=== PATIENT | male | born 1985 | race American Indian/Alaskan Native ===

== ENCOUNTER 2016-04-08 13:02 | Emergency (ER) | payer MEDICAID ==
[2016-04-08 13:26] VITALS: BP 115/71
--- NOTE | 2016-04-08 14:28 | Emergency Department Report ---
- General Chief Complaint: Earache Stated Complaint: SINUS/EAR INFECTION Time Seen by Provider: 04/08/16 14:19 Source: patient Mode of arrival: Ambulatory Limitations: No Limitations - History of Present Illness Initial Comments: Pt reports cough/congestion, sinus pain, low grade fever x 4 days. Hx of HIV, compliant with meds. Denies IVDU but reports he snorted cocaine yesterday. MD Complaint: fever, cough, nasal congestion, sinus pain -: Gradual, days(s) (4) Severity: moderate Consistency: constant Improves With: nothing Worsens With: nothing Associated Symptoms: fever, chills, nasal congestion, cough. denies: stiff neck , chest pain, shortness of breath, abdominal pain, nausea, vomiting, diarrhea, dysuria - Related Data Previous Rx's Medication Instructions Recorded Last Taken Type Amoxicillin/K Clav Tab [Augmentin 1 tab PO Q12HR #20 tab 04/08/16 Unknown Rx 875 mg] Allergies Allergy/AdvReac Type Severity Reaction Status Date / Time No Known Allergies Allergy Verified 04/08/16 13:21 ED Review of Systems ROS: Stated complaint: SINUS/EAR INFECTION Other details as noted in HPI Comment: All other systems reviewed and negative Constitutional: chills, fever Eyes: denies: eye pain, eye discharge, vision change ENT: congestion. denies: ear pain, throat pain Respiratory: cough. denies: shortness of breath, wheezing Cardiovascular: denies: chest pain, palpitations Endocrine: no symptoms reported Gastrointestinal: denies: abdominal pain, nausea, diarrhea Genitourinary: denies: urgency, dysuria Musculoskeletal: denies: back pain, joint swelling, arthralgia Skin: denies: rash, lesions Neurological: denies: headache, weakness, paresthesias Psychiatric: denies: anxiety, depression Hematological/Lymphatic: denies: easy bleeding, easy bruising ED Past Medical Hx - Past Medical History Hx HIV: Yes - Surgical History Past Surgical History?: No - Social History Smoking Status: Never Smoker Substance Use Type: Alcohol, Cocaine - Medications Home Medications: Home Medications Medication Instructions Recorded Confirmed Last Taken Type Amoxicillin/K Clav Tab [Augmentin 1 tab PO Q12HR #20 tab 04/08/16 Unknown Rx 875 mg] ED Physical Exam - General Limitations: No Limitations General appearance: alert (drowsy), in no apparent distress - Head Head exam: Present: atraumatic, normocephalic - Eye Eye exam: Present: normal appearance, PERRL, EOMI - ENT ENT exam: Present: normal orophraynx, mucous membranes moist, TM's normal bilaterally - Neck Neck exam: Present: normal inspection. Absent: meningismus - Respiratory Respiratory exam: Present: normal lung sounds bilaterally. Absent: respiratory distress, wheezes, rales, rhonchi - Cardiovascular Cardiovascular Exam: Present: regular rate, normal rhythm. Absent: systolic murmur, diastolic murmur, rubs, gallop - GI/Abdominal GI/Abdominal exam: Present: soft, normal bowel sounds. Absent: tenderness, guarding - Rectal Rectal exam: Present: deferred - Extremities Exam Extremities exam: Present: normal inspection - Back Exam Back exam: Present: normal inspection - Neurological Exam Neurological exam: Present: alert, oriented X3 - Psychiatric Psychiatric exam: Present: normal affect, normal mood - Skin Skin exam: Present: warm, dry, intact, normal color. Absent: rash ED Course Vital Signs 04/08/16 13:15 Temperature 99.7 F H Pulse Rate 100 H Respiratory 19 Rate Blood Pressure 115/71 O2 Sat by Pulse 95 Oximetry - Reevaluation(s) Reevaluation #1: 04/08/16 14:58 NAD, stable for d/c. ED Medical Decision Making - Radiology Data Radiology results: report reviewed naf - Medical Decision Making Pt with acute sinusitis. Will cover with abx. Have advised on return precautions and close follow up with PCP/ID provider. VSS. - Differential Diagnosis pna, sinusitis Critical care attestation.: If time is entered above; I have spent that time in minutes in the direct care of this critically ill patient, excluding procedure time. ED Disposition Clinical Impression: Acute bacterial rhinosinusitis Disposition: DISCHARGED TO HOME OR SELFCARE Is pt being admited?: No Condition: Good Instructions: Acute Bacterial Rhinosinusitis (ED) Prescriptions: Amoxicillin/K Clav Tab [Augmentin 875 mg] 1 tab PO Q12HR #20 tab Referrals: PRIMARY CARE, [Primary Care Provider] - 3-5 Days Time of Disposition: 15:02
--- NOTE | 2016-04-08 14:52 | XRay Report ---
ROUTINE CHEST, TWO VIEWS: HISTORY: Cough, fever. The trachea, heart, mediastinal contour, lung boyer and bony thorax are unremarkable. IMPRESSION: Unremarkable chest x-ray.
== END 2016-04-08 15:08 | disposition home or self-care (01) ==
LOC: ED 13:02
DX: J01.90 Acute sinusitis, unspecified (principal); Z21 Asymptomatic human immunodeficiency virus [HIV] infection status
CPT/HCPCS: 71020; 99283

== ENCOUNTER 2016-09-14 21:12 | Inpatient (IN) | payer MEDICAID ==
[2016-09-14] MEDS ORDERED: DILAUDID IV ONE (23:11)
[2016-09-14] MEDS ORDERED: ZOFRAN IV ONE (23:11)
[2016-09-14] MEDS ORDERED: NACL 0.9% 1000 ML 1,000 ML IV ONE (23:11)
--- NOTE | 2016-09-14 23:16 | Emergency Department Report ---
- General Chief complaint: Weakness Stated complaint: DEHYDRATION/BODY CRAMPS Time Seen by Provider: 09/14/16 23:07 Source: patient, EMS Mode of arrival: Stretcher Limitations: No Limitations - History of Present Illness MD Complaint: generalized weakness -: Gradual Location: generalized Severity: moderate Severity scale (0 -10): 2 Consistency: constant Improves with: none Worsens with: none Associated Symptoms: myalgias. denies: chest pain, confusion, dark stools, diaphoresis, dysuria, easy bruising, fever/chills, headaches, loss of appetite, nausea/vomiting, rash, shortness of breath - Related Data Previous Rx's Medication Instructions Recorded Last Taken Type Amoxicillin/K Clav Tab [Augmentin 1 tab PO Q12HR #20 tab 04/08/16 Unknown Rx 875 mg] Allergies Allergy/AdvReac Type Severity Reaction Status Date / Time No Known Allergies Allergy Verified 04/08/16 13:21 ED Review of Systems ROS: Stated complaint: DEHYDRATION/BODY CRAMPS Other details as noted in HPI Comment: All other systems reviewed and negative ED Past Medical Hx - Past Medical History Previous Medical History?: Yes Hx HIV: Yes - Surgical History Past Surgical History?: No - Social History Smoking Status: Never Smoker Substance Use Type: None - Medications Home Medications: Home Medications Medication Instructions Recorded Confirmed Last Taken Type Amoxicillin/K Clav Tab [Augmentin 1 tab PO Q12HR #20 tab 04/08/16 Unknown Rx 875 mg] ED Physical Exam - General Limitations: No Limitations General appearance: alert, in no apparent distress - Head Head exam: Present: atraumatic, normocephalic - Eye Eye exam: Present: normal appearance, PERRL, EOMI - ENT ENT exam: Present: mucous membranes dry - Neck Neck exam: Present: normal inspection - Respiratory Respiratory exam: Present: normal lung sounds bilaterally. Absent: respiratory distress - Cardiovascular Cardiovascular Exam: Present: regular rate, normal rhythm. Absent: systolic murmur, diastolic murmur, rubs, gallop - GI/Abdominal GI/Abdominal exam: Present: soft, normal bowel sounds - Rectal Rectal exam: Present: deferred - Extremities Exam Extremities exam: Present: normal inspection - Back Exam Back exam: Present: normal inspection - Neurological Exam Neurological exam: Present: alert, oriented X3 - Psychiatric Psychiatric exam: Present: normal affect, normal mood - Skin Skin exam: Present: warm, dry, intact, normal color. Absent: rash ED Course Vital Signs 09/14/16 22:31 Temperature 99.7 F H Pulse Rate 88 Respiratory 16 Rate Blood Pressure 92/52 O2 Sat by Pulse 99 Oximetry ED Medical Decision Making - Lab Data Result diagrams: 09/14/16 23:33 09/14/16 23:38 - Radiology Data Radiology results: report reviewed, image reviewed - Medical Decision Making will admit for intractable vomiting / dehydration , still just minimal improvement after fluids , he was recently seen and dc from another hospital. i think he deserves a work up for his symptoms, specially his elevated alk phospate Critical care attestation.: If time is entered above; I have spent that time in minutes in the direct care of this critically ill patient, excluding procedure time. ED Disposition Clinical Impression: Dehydration, Vomiting Disposition: DC-09 OP ADMIT IP TO THIS HOSP Is pt being admited?: No Does the pt Need Aspirin: No Condition: Fair Referrals: PRIMARY CARE, [Primary Care Provider] - 3-5 Days Time of Disposition: 01:52
--- NOTE | 2016-09-14 23:58 | XRay Report ---
FINAL REPORT PROCEDURE: AP and lateral chest x-ray TECHNIQUE: AP and lateral chest radiographs were obtained. CPT 99976 HISTORY: Weakness COMPARISON: No prior studies are available for comparison. FINDINGS: The patient is in a mild reverse apical lordotic position and rotated to the right. Heart: Normal. Mediastinum/Vessels: Normal. Lungs/Pleural space: Mildly hypoventilated. There is some crowding of the bronchovascular markings in the bases likely due to poor inspiration. No dense consolidations are seen.. Bony thorax: No acute osseous abnormality. Other: IMPRESSION: Lungs are hypoventilated. No acute abnormality is visualized..
[2016-09-15 00:02] LABS: Hemoglobin 8.9 gm/dl (11.8-15.2); Mean Corpuscular HGB Conc 33 % (32-34); Mean Corpuscular Hemoglobin 28 pg (28-32); Mean Corpuscular Volume 85 fl (84-94); Platelet Count 264 K/mm3 (140-440); Red Blood Count 3.18 M/mm3 (3.65-5.03)
[2016-09-15 00:07] LABS: INR 0.97 (0.87-1.13)
[2016-09-15 00:11] LABS: Magnesium 1.6 mg/dL (1.7-2.3)
[2016-09-15 00:24] LABS: Alanine Aminotransferase 52 units/L (7-56); Albumin/Globulin Ratio 0.8 %; Anion Gap 16 mmol/L; BUN/Creatinine Ratio 8.88; Blood Urea Nitrogen 8 mg/dL (9-20); Calcium 7.6 mg/dL (8.4-10.2); Carbon Dioxide 19 mmol/L (22-30); Chloride 103.3 mmol/L (98-107); Glucose 83 mg/dL (75-100); Potassium 3.1 mmol/L (3.6-5.0); Sodium 135 mmol/L (137-145); Total Protein 6.6 g/dL (6.3-8.2)
[2016-09-15 00:49] LABS: Alkaline Phosphatase 1393 units/L (35-129)
[2016-09-15] MEDS ORDERED: KCL 10MEQ/100ML 10 MEQ/100 ML BAG IV ONE ×2 (01:20→01:38)
[2016-09-15] MEDS ORDERED: NACL 0.9% 1000 ML 1,000 ML IV ONE (01:39)
[2016-09-15 02:53] LABS: Blastocytes % (Manual) 0 %; Eosinophils % (Manual) 0 % (0.0-4.3)
[2016-09-15 02:54] LABS: Anisocytosis 1+; Platelet Estimate Consistent w Auto
[2016-09-15 02:55] LABS: Diff Status Complete
[2016-09-15] MEDS ORDERED: MORPHINE IV PRN (08:42)
[2016-09-15] MEDS ORDERED: ZOFRAN IV PRN (08:42)
[2016-09-15] MEDS ORDERED: DULCOLAX PR PRN (08:42)
[2016-09-15] MEDS ORDERED: MILK OF MAGNESIA PO PRN (08:42)
[2016-09-15] MEDS ORDERED: D5W/0.45% NACL/KCL 20 MEQ 20 MEQ/1,000 ML BAG IV SCH (09:00)
--- NOTE | 2016-09-15 09:01 | Admit Criteria Form ---
Admission Criteria Documentation: GASTROENTEROLOGY GRG Clinical Indications for Admission to Inpatient Care (Place 'X' for any and all applicable criteria): Hospital admission is needed for appropriate care of the patient because of ANY ONE of the following: [ ]I. Hemoperitoneum(7) [ ]II. Ascites requiring acute treatment indicated by ANY ONE of the following( 8)(9): [ ]a) Hemodynamic instability remaining after emergency or observation level care (as appropriate) [ ]b) Peritoneal signs present (eg, abdominal rigidity, rebound tenderness, absent bowel sounds) [ ]c) Tachypnea, Hypoxemia, or other respiratory symptoms remain after emergency or observation level care (as appropriate) [ ]d) Suspected infected ascites as indicated by ANY ONE of the following: [ ]i) Temperature greater than 100 degrees F (37.8 degrees C) [ ]ii) Abdominal pain or tenderness not relieved by paracentesis [ ]iii) Systemic signs of infection (eg, elevated WBC count, fever) [ ]iv) Ascitic fluid analysis consistent with infection ( eg, elevated WBC count): [ ]v) Vital sign abnormality [ ]III. Suspected acute intra-abdominal process indicated by ANY ONE of the following(1)(2)(3)(4)(5): [ ]a) Hemodynamic instability [ ]b) Peritoneal signs present (eg, abdominal rigidity, rebound tenderness, absent bowel sounds) [ ]c) Bowel obstruction suspected (eg, severe vomiting, abdominal distension) [ ]d) Suspected mesenteric ischemia or ischemic colitis(6) [ ]e) Other signs or symptoms of acute abdominal disease (eg, severe pain, free air): [ ]IV. Severe liver disease indicated by ANY ONE of the following(8)(9)(10)(11)( 12)(13)(14): [ ]a) Acute hepatitis (eg, transaminase level greater than 1000 IU/L) [ ]b) Acute elevation of prothrombin time to more than 50% above normal or INR greater than 1.5 [ ]c) Bilirubin greater than 20 mg/dL (342 micromoles/L) (15) [ ]d) New-onset or worsening hepatic encephalopathy [ ]e) Acute liver necrosis [ ]f) Vomiting or dehydration that is severe of persistent [ ]g) Hemodynamic instability due to liver disease [ ]h) Acute renal failure [ ]i) Hepatic abscess [ ]j) Dehydration that is severe or persistent [ ]k) Hepatic hydrothorax(21) [ ]l) Other indications of severe liver disease (eg, persistent fever , ingestion of hepatotoxin) [ ]V. Severe diarrhea indicated by ANY ONE of the following(17)(18)(19)(20)(21)( 22)(23): [ ]a) High fever or other high-risk infection situation [ ]b) Intractable bloody diarrhea (eg, more than 6 bloody stools per day) [ ]c) Suspected Clostridium difficile-associated diarrhea(24) [ ]d) Change in mental status that persists after emergency or observation level care (as appropriate) [ ]e) Severe dehydration (eg, greater than 9% loss of body weight in children) [ ]f) Inability to maintain hydration [ ]g) Peritoneal signs present (eg, abdominal rigidity, rebound tenderness, absent bowel sounds) [ ]h) Abdominal ischemia suspected(6) [ ]i) Hemodynamic instability that persists after emergency or observation level care (as appropriate) [ ]j) Severe electrolyte abnormalities requiring inpatient care [ ]k) Acute renal failure [ ]. Suspected toxic megacolon(5)(6) [ ]VII.Severe dysphagia indicated by ANY ONE of the following(25)(26): [ ]a) Suspected esophageal perforation or fistula(27) [ ]b) Suspected cause that requires inpatient care (eg, caustic ingestion, severe esophagitis) (28) [ ]c) Severe dehydration (eg, greater than 9% loss of body weight in children) [ ]d) Inability to manage secretions or maintain hydration [ ]e) Hemodynamic instability that persists after emergency or observation level care (as appropriate) [ ]f) Severe electrolyte abnormalities requiring inpatient care [ ]g) Acute renal failure [X ]VIII.Vomiting and ANY ONE of the following (29)(30)(31)(32): [ ]a) High fever or other high-risk infection situation [ ]b) Change in mental status that persists after emergency or observation level care (as appropriate) [ ]c) Severe dehydration (e.g., greater than 9% loss of body weight in children) [ ]d) Peritoneal signs present (e.g., abdominal rigidity, rebound tenderness, absent bowel sounds) [ ]e) Hemodynamic instability that persists after emergency or observation level care (as appropriate) [ ]f) Severe electrolyte abnormalities requiring inpatient care [ ]g) Acute renal failure [ ]h) Bowel obstruction suspected (e.g., severe vomiting, abdominal distension) [ X]i) Vomiting that is severe or persistent after medical treatment [ ]IX. Significant dehydration indicated by ANY ONE of the following(23)(24)(25) [ ]a) Clinical findings of severe dehydration indicated by ANY ONE of the following: [ ]i) Acute loss of weight from baseline (5% of body weight in adults, 9% in pediatric patients) [ ]ii) Hemodynamic instability [ ]iii) Acute renal failure [ ]iv) Serum sodium greater than 150 mEq/L (mmol/L) [ ]b) Dehydration that is persistent indicated by ALL of the following: [ ]i) Oral rehydration therapy not tolerated or insufficient to adequately correct dehydration [ ]ii) Appropriate intravenous treatment (eg, fluids) does not readily correct dehydration hours of (ie, after 12 to 24 of treatment) [ ]X. Gastroparesis and ANY ONE of the following(37)(38)(39): [ ]a) Dehydration that is severe or persistent [ ]b) Severe electrolyte abnormalities requiring inpatient care [ ]c) Acute renal failure [ ]d) Vomiting that is severe or persistent [ ]XI. Complications of transplanted liver indicated by ANY ONE of the following (40)(41): [ ]a) Acute graft rejection requiring inpatient management (eg, intravenous immunosuppression)(42) [ ]b) Failure of transplanted liver as indicated by ANY ONE of the following: [ ]i) Acute hepatitis (eg, transaminase level greater than 1000 International Units per liter (IU/L)) [ ]ii) Acute elevation of prothrombin time to more than 50% above baseline or INR greater than 1.5 [ ]iii) Bilirubin greater than 20 mg/dL (342 micromoles/L) [ ]iv) New-onset or worsening hepatic encephalopathy [ ]v) Acute elevation of serum ammonia level (eg, greater than 210 mcg/dL (150 micromoles/L)) [ ]vi) Acute liver necrosis [ ]c) Infection requiring inpatient management (eg, Hemodynamic instability, need for intravenous antimicrobial treatment)(43)(44)(45)(46)(47)(48)(49)(50) [ ]d) Other complication of transplanted liver (eg, thrombosis, autoimmune hepatitis, variceal bleeding) requiring inpatient management(51)(52) [ ]XII Complications of transplanted pancreas indicated by ANY ONE of the following(53): [ ]a) Acute graft rejection requiring inpatient management (eg, intravenous immunosuppression)(42)(54) [ ]b) Failure of transplanted pancreas as indicated by ANY ONE of the following: [ ]i) Serum amylase greater than 3 times the upper limit of normal or baseline [ ]ii) Serum lipase greater than 3 times the upper limit of normal or baseline [ ]iii) Imaging findings consistent with pancreatic inflammation or necrosis [ ]c) Infection requiring inpatient management (eg, Hemodynamic instability, need for intravenous antimicrobial treatment)(43)(44)(45)(46)(47)(48)(49)(50) [ ]d) Other complication of transplanted liver (eg, thrombosis, autoimmune hepatitis, variceal bleeding) requiring inpatient management(51)(52) [ ]X. Gastroenterology condition and ALL of the following: [ ]a) Symptom or finding for which emergency and observation care have failed or are not considered appropriate (Also use General Criteria: Observation Care as appropriate) [ ]b) Presence of ANY ONE of the following: [ ]i) A General Admission Criteria [ ]ii) A Pediatric General Admission Criteria. The original [facility] [employer] content created by [facility] has been revised. The portions of the content which have been revised are identified through the use of italic text or in bold,and [facility] has neither reviewed nor approved the modified material. All other unmodified content is copyright [facility]. Please see references footnoted in the original [facility] edition 2016 Admission Criteria Met: Yes
[2016-09-15] MEDS ORDERED: NACL ONE ×2 (09:05→09:38)
--- NOTE | 2016-09-15 10:20 | Ultrasound Report ---
Ultrasound of the right upper quadrant. History: Right upper quadrant pain and vomiting. Findings: The abdominal aorta and liver are normal. There are couple of small echogenic foci within the gallbladder lumen with no acoustic shadowing. The common bile duct is dilated at 8.7 mm. No intraluminal echoes are seen within the common duct. Right kidney and pancreas are normal. Impression: 1. Probable gallbladder polyps. 2. Dilatation of the common bile duct at 8.7 mm.
[2016-09-15] MEDS ORDERED: MAGNESIUM SULFATE 1 GM in NACL 0.9% 50 ML IV ONE (11:00)
--- NOTE | 2016-09-15 11:17 | Cat Scan Report ---
CT SCAN OF THE ABDOMEN AND PELVIS WITH CONTRAST: HISTORY: Abdominal pain. TECHNIQUE: Helical CT in 1.25mm intervals following IV contrast. Sagittal and coronal reconstructions. FINDINGS: Correlation is made with the right upper quadrant ultrasound performed earlier the same day. The liver is normal in size and is without focal defect. Mild prominence of the common bile duct and proximal intrahepatic biliary ducts is noted. The CBD measures 8 mm on the coronal CT images but no obstructing stone is appreciated on CT. The spleen and pancreas demonstrate a normal size and attenuation with no evidence of abnormal mass. The kidneys are normal in size and position with no evidence of hydronephrosis or mass. The adrenal glands are normal. The abdominal aorta is normal. No oral contrast was administered which limits evaluation of the GI system. Moderate fluid is identified throughout the distal small bowel loops and colon. This may represent gastroenteritis or a mild colitis. The appendix is unremarkable. There is no evidence of peritoneal air or fluid. There is no evidence of any abnormal masses or fluid collections within the pelvis. No adenopathy is identified. The bladder is normal. IMPRESSION: Fluid filled loops of distal small bowel and colon suggesting gastroenteritis or a mild colitis. Mild prominence of the biliary system is also demonstrated on CT but no obstructing lesion is detected. No acute inflammatory process is appreciated.
[2016-09-15] MEDS: TYLENOL PO PRN ×2 (11:22→17:29)
--- NOTE | 2016-09-15 11:50 | History and Physical Report ---
<CLARENCE DEVRIES - Last Filed: 09/15/16 12:56> History of Present Illness Date of examination: 09/15/16 Date of admission: 09/15/16 08:42 Chief complaint: Generalized body ache, nausea and vomiting History of present illness: Patient is a 31 years old -[place], with past medical history genital herpes, HIV and genital fungal infections, who presented to the ED after 3 weeks of nausea, vomiting, and diarrhea. Patient stated that he has been feeling tired and generalized weakness for the past 3 weeks. Patient reported for the past 2 days developed watery diarrhea, nausea and then vomiting multiple times. He did not eat anything for fear of vomiting. He was able to drink water and keep it down. Patient denies abdominal pain. He denies any recent hemoptysis, constipation, hematochezia, melena, and changes in her bowel habits. He has been compliant with taking his medications for HIV and has been stable. Patient poor historian, does not want to talk for somewhat. Past History Past Medical History: HIV/AIDS, liver disease (elevated AST, genital herpes) Past Surgical History: No surgical history Social history: single, lives with family, other (cocaine abuse) Medications and Allergies Allergies Allergy/AdvReac Type Severity Reaction Status Date / Time No Known Allergies Allergy Verified 04/08/16 13:21 Home Medications Medication Instructions Recorded Confirmed Last Taken Type Amoxicillin/K Clav Tab [Augmentin 1 tab PO Q12HR #20 tab 04/08/16 Unknown Rx 875 mg] Dapsone 1 tab PO QDAY 09/15/16 09/15/16 Unknown History Dolutegravir Sodium [Tivicay] 1 tab PO QDAY 09/15/16 09/15/16 Unknown History Emtricita/Rilpiviri/Tenofo(Nf) 1 tab PO QDAY 09/15/16 09/15/16 Unknown History [Complera (Nf) 200-25-300 mg] Fluconazole [Diflucan TAB] 100 mg PO QDAY 09/15/16 09/15/16 09/14/16 History 100 Active Meds: Active Medications Acetaminophen (Tylenol) 650 mg PO Q4H PRN PRN Reason: Pain MILD(1-3)/Fever >100.5/OLMSTEAD Last Admin: 09/15/16 11:22 Dose: 650 mg Bisacodyl (Dulcolax) 10 mg [place] QDAY PRN PRN Reason: Constipation unrelieved by MOM Potassium Chloride/Dextrose/Sod Cl (D5w/0.45% Nacl/Kcl 20 Meq) 20 meq in 1,000 mls @ 75 mls/hr IV DIRECT BESSIE Last Admin: 09/15/16 11:15 Dose: 75 mls/hr Magnesium Sulfate 1 gm/ Sodium (Chloride) 52 mls @ 52 mls/hr IV ONCE ONE Stop: 09/15/16 11:59 Last Admin: 09/15/16 11:39 Dose: 52 mls/hr Potassium Chloride (Kcl 10meq/100ml) 10 meq in 100 mls @ 100 mls/hr IV Q1H BESSIE Stop: 09/15/16 14:59 Morphine Sulfate (Morphine) 2 mg IV Q4H PRN PRN Reason: Pain, Moderate (4-6) Ondansetron HCl (Zofran) 4 mg IV Q4H PRN PRN Reason: N/V unrelieved by Reglan Review of Systems Constitutional: chills, fatigue, weakness, malaise, poor appetite, daytime sleepiness, no weight loss, no fever, no sweats, no night sweats Ears, nose, mouth and throat: no ear pain, no ear discharge, no tinnitis, no decreased hearing Cardiovascular: no chest pain, no orthopnea, no palpitations, no rapid/ irregular heart beat Respiratory: no cough, no cough with sputum, no excessive sputum, no hemoptysis Gastrointestinal: nausea, vomiting, diarrhea, loss of appetite, no hematemesis, no melena, no hematochezia Genitourinary Male: no dysuria, no hematuria, no flank pain, no discharge, no urinary frequency, no urinary hesitancy, no nocturia Rectal: no pain, no incontinence, no bleeding Musculoskeletal: no neck stiffness, no neck pain, no shooting arm pain Integumentary: no deferred, no rash, no pruritis, no redness Neurological: no head injury, no transient paralysis, no paralysis, no weakness , no parathesias Psychiatric: no anxiety, no memory loss, no change in sleep habits Endocrine: no cold intolerance, no heat intolerance, no polyphagia, no excessive thirst Hematologic/Lymphatic: no easy bruising, no easy bleeding Allergic/Immunologic: no urticaria, no allergic rhinitis Exam - Constitutional Vitals: Temp Pulse Resp BP Pulse Ox 98.7 F 72 18 100/60 100 09/15/16 10:47 09/15/16 10:47 09/15/16 10:47 09/15/16 10:47 09/15/16 10:47 General appearance: Present: no acute distress - EENT Eyes: Present: PERRL ENT: hearing intact - Neck Neck: Present: supple (1) - Respiratory Respiratory effort: normal Respiratory: bilateral: CTA - Cardiovascular Heart rate: 72 Rhythm: regular - Extremities Extremities: no ischemia, No edema Peripheral Pulses: within normal limits - Abdominal General gastrointestinal: Present: soft, non-tender Male genitourinary: Present: deferred - Rectal Rectal Exam: deferred - Integumentary Integumentary: Present: clear, warm, dry - Musculoskeletal Musculoskeletal: strength equal bilaterally - Psychiatric Psychiatric: appropriate mood/affect - Neurologic Neurologic: CNII-XII intact - Allied Health Allied health notes reviewed: nursing Results - Labs CBC & Chem 7: 09/14/16 23:33 09/14/16 23:38 Labs: Laboratory Last Values WBC 5.0 K/mm3 (4.5-11.0) 09/14/16 23:33 RBC 3.18 M/mm3 (3.65-5.03) L 09/14/16 23:33 Hgb 8.9 gm/dl (11.8-15.2) L 09/14/16 23:33 Hct 27.0 % (35.5-45.6) L 09/14/16 23:33 MCV 85 fl (84-94) 09/14/16 23:33 MCH 28 pg (28-32) 09/14/16 23:33 MCHC 33 % (32-34) 09/14/16 23:33 RDW 14.0 % (13.2-15.2) 09/14/16 23:33 Plt Count 264 K/mm3 (140-440) 09/14/16 23:33 Add Manual Diff Complete 09/14/16 23:33 Total Counted 100 09/14/16 23:33 Seg Neuts % (Manual) 85.0 % (40.0-70.0) H 09/14/16 23:33 Band Neutrophils % 2.0 % 09/14/16 23:33 Lymphocytes % (Manual) 6.0 % (13.4-35.0) L 09/14/16 23:33 Reactive Lymphs % (Man) 0 % 09/14/16 23:33 Monocytes % (Manual) 7.0 % (0.0-7.3) 09/14/16 23:33 Eosinophils % (Manual) 0 % (0.0-4.3) 09/14/16 23:33 Metamyelocytes % 0 % 09/14/16 23:33 Myelocytes % 0 % 09/14/16 23:33 Promyelocytes % 0 % 09/14/16 23:33 Blast Cells % 0 % 09/14/16 23:33 Nucleated RBC % Not Reportable 09/14/16 23:33 Seg Neutrophils # Man 4.3 K/mm3 (1.8-7.7) 09/14/16 23:33 Band Neutrophils # 0.1 K/mm3 09/14/16 23:33 Lymphocytes # (Manual) 0.3 K/mm3 (1.2-5.4) L 09/14/16 23:33 Abs React Lymphs (Man) 0.0 K/mm3 09/14/16 23:33 Monocytes # (Manual) 0.4 K/mm3 (0.0-0.8) 09/14/16 23:33 Eosinophils # (Manual) 0.0 K/mm3 (0.0-0.4) 09/14/16 23:33 Basophils # (Manual) 0.0 K/mm3 (0.0-0.1) 09/14/16 23:33 Metamyelocytes # 0.0 K/mm3 09/14/16 23:33 Myelocytes # 0.0 K/mm3 09/14/16 23:33 Promyelocytes # 0.0 K/mm3 09/14/16 23:33 Blast Cells # 0.0 K/mm3 09/14/16 23:33 WBC Morphology Not Reportable 09/14/16 23:33 Hypersegmented Neuts Not Reportable 09/14/16 23:33 Hyposegmented Neuts Not Reportable 09/14/16 23:33 Hypogranular Neuts Not Reportable 09/14/16 23:33 Smudge Cells Not Reportable 09/14/16 23:33 Toxic Granulation Not Reportable 09/14/16 23:33 Toxic Vacuolation Not Reportable 09/14/16 23:33 Dohle Bodies Not Reportable 09/14/16 23:33 Pelger-Huet Anomaly Not Reportable 09/14/16 23:33 Miriam Rods Not Reportable 09/14/16 23:33 Platelet Estimate Consistent w auto 09/14/16 23:33 Clumped Platelets Not Reportable 09/14/16 23:33 Plt Clumps, EDTA Not Reportable 09/14/16 23:33 Large Platelets Not Reportable 09/14/16 23:33 Giant Platelets Not Reportable 09/14/16 23:33 Platelet Satelliting Not Reportable 09/14/16 23:33 Plt Morphology Comment Not Reportable 09/14/16 23:33 RBC Morphology Not Reportable 09/14/16 23:33 Dimorphic RBCs Not Reportable 09/14/16 23:33 Polychromasia Not Reportable 09/14/16 23:33 Hypochromasia Not Reportable 09/14/16 23:33 Poikilocytosis Not Reportable 09/14/16 23:33 Anisocytosis 1+ 09/14/16 23:33 Microcytosis Not Reportable 09/14/16 23:33 Macrocytosis Not Reportable 09/14/16 23:33 Spherocytes Not Reportable 09/14/16 23:33 Pappenheimer Bodies Not Reportable 09/14/16 23:33 Sickle Cells Not Reportable 09/14/16 23:33 Target Cells Not Reportable 09/14/16 23:33 Tear Drop Cells Not Reportable 09/14/16 23:33 Ovalocytes Not Reportable 09/14/16 23:33 Helmet Cells Not Reportable 09/14/16 23:33 Fletcher-[place]way Bodies Not Reportable 09/14/16 23:33 Dumont Rings Not Reportable 09/14/16 23:33 [place] Cells Not Reportable 09/14/16 23:33 Bite Cells Not Reportable 09/14/16 23:33 Crenated Cell Not Reportable 09/14/16 23:33 Elliptocytes Not Reportable 09/14/16 23:33 Acanthocytes (Spur) Not Reportable 09/14/16 23:33 Rouleaux Not Reportable 09/14/16 23:33 Hemoglobin C Crystals Not Reportable 09/14/16 23:33 Schistocytes Not Reportable 09/14/16 23:33 Malaria parasites Not Reportable 09/14/16 23:33 Rico Bodies Not Reportable 09/14/16 23:33 Hem Pathologist Commnt No 09/14/16 23:33 PT 13.4 Sec. (12.2-14.9) 09/14/16 23:38 INR 0.97 (0.87-1.13) 09/14/16 23:38 Sodium 135 mmol/L (137-145) L 09/14/16 23:38 Potassium 3.1 mmol/L (3.6-5.0) L 09/14/16 23:38 Chloride 103.3 mmol/L (98-107) 09/14/16 23:38 Carbon Dioxide 19 mmol/L (22-30) L 09/14/16 23:38 Anion Gap 16 mmol/L 09/14/16 23:38 BUN 8 mg/dL (9-20) L 09/14/16 23:38 Creatinine 0.9 mg/dL (0.8-1.5) 09/14/16 23:38 Estimated GFR > 60 ml/min 09/14/16 23:38 BUN/Creatinine Ratio 8.88 % 09/14/16 23:38 Glucose 83 mg/dL (75-100) 09/14/16 23:38 Calcium 7.6 mg/dL (8.4-10.2) L 09/14/16 23:38 Magnesium 1.60 mg/dL (1.7-2.3) L 09/14/16 23:38 Total Bilirubin 0.90 mg/dL (0.1-1.2) 09/14/16 23:38 AST 65 units/L (5-40) H 09/14/16 23:38 ALT 52 units/L (7-56) 09/14/16 23:38 Alkaline Phosphatase 1393 units/L (35-129) H 09/14/16 23:38 Total Creatine Kinase 119 units/L (55-170) 09/14/16 23:38 Total Protein 6.6 g/dL (6.3-8.2) 09/14/16 23:38 Albumin 3.0 g/dL (3.9-5) L 09/14/16 23:38 Albumin/Globulin Ratio 0.8 % 09/14/16 23:38 Lipase 33 units/L (13-60) 09/15/16 02:12 TSH 0.374 mlU/mL (0.270-4.200) 09/14/16 23:38 - Imaging and Cardiology CT scan - abdomen: image reviewed (probable gallbladder polyps. Dilation of the common bile duct at 8.7.) CT scan - chest: image reviewed (fluid. Loops of distal small bowel and colon suggesting gastroenteritis or mild colitis.) Assessment and Plan Assessment and plan: ASSESSMENT/PLAN 1.Colitis Ct of the abdomen shows fluid. Loops of distal small bowel and colon suggesting gastroenteritis or mild colitis. US shows probable gallbladder polyps. Dilation of the common bile duct at 8.7. We will admit to med surge floor We initiated empiric antibiotic treatment with Flagyl and Levaquin Gently IV fluid hydration because patient is ESRD Stools Clostridium difficile ordered Gastroenteritis Started on IV Protonix Zofran when necessary every ordered Dehydration IV fluid hydration Hypokalemia Replaced with 40 MEQ potassium Repeat BMP Closely monitor electrolytes Hyponatremia Patient is started on continues IV fluid D5 ,that will be correct it. HIV We will resume home antiviral meds Liver diseases Recheck CMP in the AM Advised patient to follow-up with GI an outpatient DVT prophylaxis Patient on Lovenox Patient full code <FREIDA JORDAN M - Last Filed: 09/15/16 14:43> History of Present Illness Date of admission: 09/15/16 08:42 Medications and Allergies Active Meds: Active Medications Acetaminophen (Tylenol) 650 mg PO Q4H PRN PRN Reason: Pain MILD(1-3)/Fever >100.5/OLMSTEAD Last Admin: 09/15/16 11:22 Dose: 650 mg Bisacodyl (Dulcolax) 10 mg [place] QDAY PRN PRN Reason: Constipation unrelieved by MOM Dapsone (Dapsone) 100 mg PO QDAY BESSIE Enoxaparin Sodium (Lovenox) 40 mg SUB-Q QDAY@2200 BESSIE Famotidine (Pepcid) 20 mg IV BID BESSIE Potassium Chloride/Dextrose/Sod Cl (D5w/0.45% Nacl/Kcl 20 Meq) 20 meq in 1,000 mls @ 75 mls/hr IV DIRECT BESSIE Last Admin: 09/15/16 11:15 Dose: 75 mls/hr Potassium Chloride (Kcl 10meq/100ml) 10 meq in 100 mls @ 100 mls/hr IV Q1H BESSIE Stop: 09/15/16 14:59 Last Admin: 09/15/16 13:10 Dose: 100 mls/hr Levofloxacin/Dextrose (Levaquin 500mg/100ml) 500 mg in 100 mls @ 100 mls/hr IV Q24HR BESSIE PRN Reason: Protocol Metronidazole (Flagyl 500 Mg/100 Ml) 500 mg in 100 mls @ 100 mls/hr IV Q6HR BESSIE Morphine Sulfate (Morphine) 2 mg IV Q4H PRN PRN Reason: Pain, Moderate (4-6) Ondansetron HCl (Zofran) 4 mg IV Q4H PRN PRN Reason: N/V unrelieved by Reglan Exam - Constitutional Vitals: Temp Pulse Resp BP Pulse Ox 98.7 F 72 18 100/60 100 09/15/16 10:47 09/15/16 10:47 09/15/16 10:47 09/15/16 10:47 09/15/16 10:47 - Psychiatric Psychiatric: no appropriate mood/affect Results - Labs CBC & Chem 7: 09/14/16 23:33 09/14/16 23:38 Labs: Laboratory Last Values WBC 5.0 K/mm3 (4.5-11.0) 09/14/16 23:33 RBC 3.18 M/mm3 (3.65-5.03) L 09/14/16 23:33 Hgb 8.9 gm/dl (11.8-15.2) L 09/14/16 23:33 Hct 27.0 % (35.5-45.6) L 09/14/16 23:33 MCV 85 fl (84-94) 09/14/16 23:33 MCH 28 pg (28-32) 09/14/16 23:33 MCHC 33 % (32-34) 09/14/16 23:33 RDW 14.0 % (13.2-15.2) 09/14/16 23:33 Plt Count 264 K/mm3 (140-440) 09/14/16 23:33 Add Manual Diff Complete 09/14/16 23:33 Total Counted 100 09/14/16 23:33 Seg Neuts % (Manual) 85.0 % (40.0-70.0) H 09/14/16 23:33 Band Neutrophils % 2.0 % 09/14/16 23:33 Lymphocytes % (Manual) 6.0 % (13.4-35.0) L 09/14/16 23:33 Reactive Lymphs % (Man) 0 % 09/14/16 23:33 Monocytes % (Manual) 7.0 % (0.0-7.3) 09/14/16 23:33 Eosinophils % (Manual) 0 % (0.0-4.3) 09/14/16 23:33 Metamyelocytes % 0 % 09/14/16 23:33 Myelocytes % 0 % 09/14/16 23:33 Promyelocytes % 0 % 09/14/16 23:33 Blast Cells % 0 % 09/14/16 23:33 Nucleated RBC % Not Reportable 09/14/16 23:33 Seg Neutrophils # Man 4.3 K/mm3 (1.8-7.7) 09/14/16 23:33 Band Neutrophils # 0.1 K/mm3 09/14/16 23:33 Lymphocytes # (Manual) 0.3 K/mm3 (1.2-5.4) L 09/14/16 23:33 Abs React Lymphs (Man) 0.0 K/mm3 09/14/16 23:33 Monocytes # (Manual) 0.4 K/mm3 (0.0-0.8) 09/14/16 23:33 Eosinophils # (Manual) 0.0 K/mm3 (0.0-0.4) 09/14/16 23:33 Basophils # (Manual) 0.0 K/mm3 (0.0-0.1) 09/14/16 23:33 Metamyelocytes # 0.0 K/mm3 09/14/16 23:33 Myelocytes # 0.0 K/mm3 09/14/16 23:33 Promyelocytes # 0.0 K/mm3 09/14/16 23:33 Blast Cells # 0.0 K/mm3 09/14/16 23:33 WBC Morphology Not Reportable 09/14/16 23:33 Hypersegmented Neuts Not Reportable 09/14/16 23:33 Hyposegmented Neuts Not Reportable 09/14/16 23:33 Hypogranular Neuts Not Reportable 09/14/16 23:33 Smudge Cells Not Reportable 09/14/16 23:33 Toxic Granulation Not Reportable 09/14/16 23:33 Toxic Vacuolation Not Reportable 09/14/16 23:33 Dohle Bodies Not Reportable 09/14/16 23:33 Pelger-Huet Anomaly Not Reportable 09/14/16 23:33 Miriam Rods Not Reportable 09/14/16 23:33 Platelet Estimate Consistent w auto 09/14/16 23:33 Clumped Platelets Not Reportable 09/14/16 23:33 Plt Clumps, EDTA Not Reportable 09/14/16 23:33 Large Platelets Not Reportable 09/14/16 23:33 Giant Platelets Not Reportable 09/14/16 23:33 Platelet Satelliting Not Reportable 09/14/16 23:33 Plt Morphology Comment Not Reportable 09/14/16 23:33 RBC Morphology Not Reportable 09/14/16 23:33 Dimorphic RBCs Not Reportable 09/14/16 23:33 Polychromasia Not Reportable 09/14/16 23:33 Hypochromasia Not Reportable 09/14/16 23:33 Poikilocytosis Not Reportable 09/14/16 23:33 Anisocytosis 1+ 09/14/16 23:33 Microcytosis Not Reportable 09/14/16 23:33 Macrocytosis Not Reportable 09/14/16 23:33 Spherocytes Not Reportable 09/14/16 23:33 Pappenheimer Bodies Not Reportable 09/14/16 23:33 Sickle Cells Not Reportable 09/14/16 23:33 Target Cells Not Reportable 09/14/16 23:33 Tear Drop Cells Not Reportable 09/14/16 23:33 Ovalocytes Not Reportable 09/14/16 23:33 Helmet Cells Not Reportable 09/14/16 23:33 [place] Bodies Not Reportable 09/14/16 23:33 Dumont Rings Not Reportable 09/14/16 23:33 [place] Cells Not Reportable 09/14/16 23:33 Bite Cells Not Reportable 09/14/16 23:33 Crenated Cell Not Reportable 09/14/16 23:33 Elliptocytes Not Reportable 09/14/16 23:33 Acanthocytes (Spur) Not Reportable 09/14/16 23:33 Rouleaux Not Reportable 09/14/16 23:33 Hemoglobin C Crystals Not Reportable 09/14/16 23:33 Schistocytes Not Reportable 09/14/16 23:33 Malaria parasites Not Reportable 09/14/16 23:33 Rico Bodies Not Reportable 09/14/16 23:33 Hem Pathologist Commnt No 09/14/16 23:33 PT 13.4 Sec. (12.2-14.9) 09/14/16 23:38 INR 0.97 (0.87-1.13) 09/14/16 23:38 Sodium 135 mmol/L (137-145) L 09/14/16 23:38 Potassium 3.1 mmol/L (3.6-5.0) L 09/14/16 23:38 Chloride 103.3 mmol/L (98-107) 09/14/16 23:38 Carbon Dioxide 19 mmol/L (22-30) L 09/14/16 23:38 Anion Gap 16 mmol/L 09/14/16 23:38 BUN 8 mg/dL (9-20) L 09/14/16 23:38 Creatinine 0.9 mg/dL (0.8-1.5) 09/14/16 23:38 Estimated GFR > 60 ml/min 09/14/16 23:38 BUN/Creatinine Ratio 8.88 % 09/14/16 23:38 Glucose 83 mg/dL (75-100) 09/14/16 23:38 Calcium 7.6 mg/dL (8.4-10.2) L 09/14/16 23:38 Magnesium 1.60 mg/dL (1.7-2.3) L 09/14/16 23:38 Total Bilirubin 0.90 mg/dL (0.1-1.2) 09/14/16 23:38 AST 65 units/L (5-40) H 09/14/16 23:38 ALT 52 units/L (7-56) 09/14/16 23:38 Alkaline Phosphatase 1393 units/L (35-129) H 09/14/16 23:38 Total Creatine Kinase 119 units/L (55-170) 09/14/16 23:38 Total Protein 6.6 g/dL (6.3-8.2) 09/14/16 23:38 Albumin 3.0 g/dL (3.9-5) L 09/14/16 23:38 Albumin/Globulin Ratio 0.8 % 09/14/16 23:38 Lipase 33 units/L (13-60) 09/15/16 02:12 TSH 0.374 mlU/mL (0.270-4.200) 09/14/16 23:38 Assessment and Plan Assessment and plan: I saw and evaluated the patient. I agree with the findings and the plan of care as documented in the Nurse Practitioner's~note, with the following corrections and additions. 31-year-old man with HIV, history of AIDS, he states that his CD4 count is not good. Doesn't know what it is. He states that he is also compliant with his retroviral medications. He presents with diarrhea, denies eating any suspicious food denies any sick contacts. * We'll obtain CD4 counts and HIV viral load, send stool for C. difficile, continue empiric antibiotics, supportive care with IV fluids pain meds and antiemetics as needed. * Gallbladder ultrasound reviewed, no significant CBD dilatation, no evidence of cholecystitis * Alk phosphatase was elevated, however the rest of his LFTs are within normal limits, treating with IV fluids, repeat LFTs in the morning. * Differential diagnosis at this time include C. difficile colitis, bacterial colitis, opportunistic infection or side effects of retroviral medications. * If CD4 count is low and C. difficile is negative, will obtain GI consult and infectious disease consults tomorrow * Continue dapsone for toxoplasma and PCP prophylaxis Advance Directives: Yes Plan of care discussed with patient/family: Yes
[2016-09-15] MEDS: KCL 10MEQ/100ML 10 MEQ/100 ML BAG IV SCH ×2 (13:10→15:34)
[2016-09-15] MEDS ORDERED: LEVAQUIN 500MG/100ML 500 MG/100 ML BAG IV SCH (14:00)
[2016-09-15] MEDS ORDERED: DAPSONE PO SCH (14:00)
[2016-09-15] MEDS ORDERED: PROTONIX PO SCH (14:00)
[2016-09-15] MEDS ORDERED: TIVICAY (NF) PO SCH (15:00)
[2016-09-15] MEDS ORDERED: COMPLERA PO SCH (15:00)
[2016-09-15] MEDS: FLAGYL 500 MG/100 ML 500 MG/100 ML BAG IV SCH ×2 (15:33→17:07)
[2016-09-15 16:28] VITALS: BP 106/54
--- NOTE | 2016-09-15 18:49 | Event Note ---
Date: 09/15/16 Called to room as patient will like to transfer to [place]. Discussed with family per patients request. Treatment plan outlined. Patient states he is not satisfied and that normally he should be feeling much better by now. He denies any chest pain, nausea, vomiting. Reports persistent diarrhea. Currently on ABX, cultures are pending. Fluids and electrolyte replacement being administred. He also denied any abdominal pain. Family will call [place] to request for accepting physician.
[2016-09-15] MEDS ORDERED: PEPCID IV SCH (20:00)
[2016-09-15] MEDS ORDERED: LOVENOX SUB-Q SCH (22:00)
[2016-09-16] MEDS ORDERED: RILPIVIRINE PO SCH (10:00)
[2016-09-16] MEDS ORDERED: DOLUTEGRAVIR SODIUM PO SCH (10:00)
[2016-09-16] MEDS ORDERED: PROTONIX IV SCH (10:00)
[2016-09-16] MEDS ORDERED: TENOFOVIR PO SCH (10:00)
[2016-09-16] MEDS ORDERED: EMTRICITABINE PO SCH (10:00)
--- NOTE | 2016-09-16 14:59 | Event Note ---
Date: 09/16/16 Was alerted that patient left AGAINST MEDICAL ADVICE yesterday. Patient was already gone by the time I arrived today..
[2016-09-17 00:10] LABS: HIV-1 RNA QN PCR 5.54 Log cps/mL (<1.30)
== END 2016-09-15 20:30 | disposition left against medical advice (07) | DRG 977 ==
LOC: ED 21:12 → 3A 09-15 08:42
PROVIDERS: ADMIT Internal Medicine; ATTEND Internal Medicine
DX: K52.9 Noninfective gastroenteritis and colitis, unspecified (principal); B20 Human immunodeficiency virus [HIV] disease; E87.1 Hypo-osmolality and hyponatremia; E86.0 Dehydration; E87.6 Hypokalemia; K82.4 Cholesterolosis of gallbladder
CPT/HCPCS: 36415; 71020; 74177; 76705; 80053; 82024; 82550; 83690; 83735; 84443; 85007; 85025; 85610; 87493; 87536; 96361; 96374; 96375; J1170; J1956; J2270; J2405; J3475; J3480; J7030; Q9967